=== PATIENT | female | born 1990 | race Caucasian/White ===

== ENCOUNTER 2024-12-28 20:10 | Emergency (ER) | payer SELFPAY ==
[2024-12-28 21:37] LABS: APPEARANCE,URINE SLT CLOUDY; BILIRUBIN,URINE NEGATIVE (NEGATIVE); COLOR,URINE YELLOW; GLUCOSE,URINE NEGATIVE (NEGATIVE); KETONES,URINE NEGATIVE (NEGATIVE); LEUKOCYTE ESTERASE,URINE NEGATIVE (NEGATIVE); NITRITE,URINE POSITIVE (NEGATIVE); OCCULT BLOOD,URINE TRACE-INTACT (NEGATIVE); PROTEIN,URINE NEGATIVE (NEGATIVE); UROBILINOGEN,URINE 0.2 EU/dL (<2.0)
[2024-12-28 21:49] LABS: BACTERIA,URINE 4+ (NEGATIVE); EPITHELIAL CELLS,URINE FEW (NONE-FEW); MUCUS,URINE MODERATE (NONE-MOD); RBC,URINE 0-2 (0-2/HPF)
[2024-12-28] MEDS ORDERED: Sodium Chloride 0.9% 20 ML SDV IV PRN (22:27)
[2024-12-28] MEDS ORDERED: Sodium Chloride 0.9% 2.5 ML Syringe FLUSH PRN (22:27)
[2024-12-28] MEDS ORDERED: Sodium Chloride 0.9% 10 ML Syringe FLUSH PRN (22:27)
[2024-12-28 22:46] LABS: BASOPHILS ABSOLUTE AUTO 0.05 K/uL (0.00-0.20); BASOPHILS PERCENT AUTO 0.5 % (0.0-1.0); EOSINOPHILS ABSOLUTE AUTO 0.13 K/uL (0.00-0.45); EOSINOPHILS PERCENT AUTO 1.2 % (0.0-6.0); HEMATOCRIT 36.3 % (37.0-47.0); HEMOGLOBIN 12.4 g/dL (12.0-16.0); IMMATURE GRAN ABSOLUTE AUTO 0.04 K/uL (0.00-0.05); IMMATURE GRAN PERCENT AUTO 0.4 % (0.0-0.4); LYMPHOCYTES ABSOLUTE AUTO 2.73 K/uL (1.00-4.80); LYMPHOCYTES PERCENT AUTO 24.6 % (24.0-44.0); MEAN CORPUSCULAR HEMOGLOBIN 32.6 pg (28.0-32.0); MEAN CORPUSCULAR HGB CONC 34.2 g/dL (32.0-36.0); MEAN CORPUSCULAR VOLUME 95.5 fL (83.0-99.0); MEAN PLATELET VOLUME 12.2 fL (9.4-12.3); MONOCYTES ABSOLUTE AUTO 1.12 K/uL (0.00-0.80); MONOCYTES PERCENT AUTO 10.1 % (0.0-8.0); NEUTROPHILS ABSOLUTE AUTO 7.03 K/uL (1.80-7.70); NEUTROPHILS PERCENT AUTO 63.2 % (41.0-71.0); PLATELET COUNT,PLT 211 K/uL (150-400)
[2024-12-28] MEDS: cefTRIAXone 2 GM in Sodium Chloride 0.9% 50 ML IV ONE (22:49)
[2024-12-28] MEDS: Sodium Chloride 0.9% 1,000 ML IV ONE (22:49)
[2024-12-28] MEDS: Ondansetron 4 MG/2 ML SDV IVPUSH ONE (22:50)
[2024-12-28] MEDS: Ketorolac 30 MG/ML SDV IVPUSH ONE (22:50)
[2024-12-28] MEDS: Morphine 2 MG/ML SYRINGE IVPUSH ONE ×2 (22:50→23:08)
[2024-12-28] MEDS: Iopamidol 755 MG/ML 500 ML Multipack Bottle IVPUSH ONE (23:00)
[2024-12-28 23:04] LABS: INR 0.96 (0.86-1.11)
[2024-12-28 23:15] LABS: A/G RATIO 1.2 (0.9-1.6); ALBUMIN 3.8 g/dL (3.4-5.0); BILIRUBIN TOTAL 0.3 mg/dL (0.2-1.0); CALCIUM 8.4 mg/dL (8.5-10.1); CARBON DIOXIDE,CO2 23.2 mmol/L (21.0-32.0); CREATININE 0.7 mg/dL (0.6-1.0); EST CRCL DRUG DOSING (CG) 102.86 mL/min
== END 2024-12-29 00:38 | disposition home or self-care (01) ==
LOC: MW.ED 20:10
DX: N12 Tubulo-interstitial nephritis, not specified as acute or chronic (principal); Z90.49 Acquired absence of other specified parts of digestive tract; Z75.8 Other problems related to medical facilities and other health care; Z88.2 Allergy status to sulfonamides; Z88.8 Allergy status to other drugs, medicaments and biological substances
CPT/HCPCS: 36415; 74177; 80053; 81001; 81025; 85025; 85610; 87086; 87088; 87186; 96374; 96375; 99284; J0696; J1885; J2270; J2405; J3490; J7030; Q9967

== ENCOUNTER 2025-08-03 10:08 | Emergency (ER) | payer SELFPAY ==
[2025-08-03 10:30] LABS: APPEARANCE,URINE SLT CLOUDY; GLUCOSE,URINE NEGATIVE (NEGATIVE); OCCULT BLOOD,URINE NEGATIVE (NEGATIVE)
[2025-08-03 10:37] LABS: BASOPHILS ABSOLUTE AUTO 0.05 K/uL (0.00-0.20); BASOPHILS PERCENT AUTO 0.5 % (0.0-1.0); EOSINOPHILS ABSOLUTE AUTO 0.07 K/uL (0.00-0.45); EOSINOPHILS PERCENT AUTO 0.7 % (0.0-6.0); IMMATURE GRAN ABSOLUTE AUTO 0.02 K/uL (0.00-0.05); IMMATURE GRAN PERCENT AUTO 0.2 % (0.0-0.4); LYMPHOCYTES ABSOLUTE AUTO 1.92 K/uL (1.00-4.80); LYMPHOCYTES PERCENT AUTO 19.7 % (24.0-44.0); MEAN PLATELET VOLUME 11.3 fL (9.4-12.3); MONOCYTES ABSOLUTE AUTO 0.92 K/uL (0.00-0.80); MONOCYTES PERCENT AUTO 9.5 % (0.0-8.0); NEUTROPHILS ABSOLUTE AUTO 6.75 K/uL (1.80-7.70); NEUTROPHILS PERCENT AUTO 69.4 % (41.0-71.0); NRBC ABSOLUTE 0.00 K/uL (0.00-0.02); NRBC PERCENT 0.0 /100WBC (0.0-0.2); PLATELET COUNT,PLT 233 K/uL (150-400); RED BLOOD CELL COUNT 3.84 M/uL (4.10-5.30); WHITE BLOOD CELL COUNT,WBC 9.73 K/uL (3.9-11.3)
[2025-08-03 10:37] LABS: EPITHELIAL CELLS,URINE MANY (NONE-FEW)
[2025-08-03 11:21] LABS: A/G RATIO 1.1 (0.9-1.6); ALANINE AMINOTRANSFERASE,ALT 29.0 IU/L (14-63); ASPARTATE AMNIOTRANSFERASE,AST 18.0 IU/L (15-37); BILIRUBIN TOTAL 0.3 mg/dL (0.2-1.0); BLOOD UREA NITROGEN,BUN 16.0 mg/dL (7.0-18.0); CARBON DIOXIDE,CO2 26.7 mmol/L (21.0-32.0); CHLORIDE,CL 106.0 mmol/L (98-107); CREATININE 0.6 mg/dL (0.6-1.0); EST CRCL DRUG DOSING (CG) 114.08 mL/min; GLUCOSE RANDOM 97.0 mg/dL (74-106); POTASSIUM,K 4.4 mmol/L (3.5-5.1); PROTEIN TOTAL,TP 7.1 g/dL (6.4-8.2); SODIUM,NA 142.0 mmol/L (136-145)
[2025-08-03 11:23] LABS: ESTIMATED GFR 121.0 mL/min (>60); HCG QUANTITATIVE 13580.0 mIU/mL
== END 2025-08-03 13:47 | disposition home or self-care (01) ==
LOC: MW.ED 10:08
DX: O23.41 Unspecified infection of urinary tract in pregnancy, first trimester (principal); N39.0 Urinary tract infection, site not specified; Z3A.01 Less than 8 weeks gestation of pregnancy; Z88.2 Allergy status to sulfonamides; Z75.3 Unavailability and inaccessibility of health-care facilities; Z88.8 Allergy status to other drugs, medicaments and biological substances; Z90.49 Acquired absence of other specified parts of digestive tract
CPT/HCPCS: 36415; 76801; 76801-26; 76817; 76817-26; 80053; 81001; 84702; 85025; 86900; 86901; 87086; 99283; 99284

== ENCOUNTER 2025-08-11 14:40 | Emergency (ER) | payer SELFPAY ==
[2025-08-11 15:31] LABS: BASOPHILS ABSOLUTE AUTO 0.05 K/uL (0.00-0.20); BASOPHILS PERCENT AUTO 0.4 % (0.0-1.0); EOSINOPHILS ABSOLUTE AUTO 0.09 K/uL (0.00-0.45); EOSINOPHILS PERCENT AUTO 0.7 % (0.0-6.0); IMMATURE GRAN ABSOLUTE AUTO 0.05 K/uL (0.00-0.05); IMMATURE GRAN PERCENT AUTO 0.4 % (0.0-0.4); LYMPHOCYTES ABSOLUTE AUTO 2.19 K/uL (1.00-4.80); LYMPHOCYTES PERCENT AUTO 17.0 % (24.0-44.0); MEAN PLATELET VOLUME 11.6 fL (9.4-12.3); MONOCYTES ABSOLUTE AUTO 0.98 K/uL (0.00-0.80); MONOCYTES PERCENT AUTO 7.6 % (0.0-8.0); NEUTROPHILS ABSOLUTE AUTO 9.49 K/uL (1.80-7.70); NEUTROPHILS PERCENT AUTO 73.9 % (41.0-71.0); NRBC ABSOLUTE 0.00 K/uL (0.00-0.02); NRBC PERCENT 0.0 /100WBC (0.0-0.2); PLATELET COUNT,PLT 221 K/uL (150-400); RED BLOOD CELL COUNT 3.69 M/uL (4.10-5.30); WHITE BLOOD CELL COUNT,WBC 12.85 K/uL (3.9-11.3)
[2025-08-11 15:44] LABS: INR 0.94 (0.86-1.11); PTT,PARTIAL THROMBOPLSTIN TIME 24.0 SEC (23.9-30.7)
[2025-08-11 16:21] LABS: A/G RATIO 1.0 (0.9-1.6); ALANINE AMINOTRANSFERASE,ALT 23.0 IU/L (14-63); ASPARTATE AMNIOTRANSFERASE,AST 16.0 IU/L (15-37); BILIRUBIN TOTAL 0.1 mg/dL (0.2-1.0); BLOOD UREA NITROGEN,BUN 17.0 mg/dL (7.0-18.0); CARBON DIOXIDE,CO2 22.9 mmol/L (21.0-32.0); CHLORIDE,CL 105.0 mmol/L (98-107); CREATININE 0.5 mg/dL (0.6-1.0); EST CRCL DRUG DOSING (CG) 136.9 mL/min; GLUCOSE RANDOM 112.0 mg/dL (74-106); POTASSIUM,K 4.0 mmol/L (3.5-5.1); PROTEIN TOTAL,TP 6.6 g/dL (6.4-8.2); SODIUM,NA 140.0 mmol/L (136-145)
[2025-08-11 16:25] LABS: ESTIMATED GFR 126.0 mL/min (>60); HCG QUANTITATIVE 68672.0 mIU/mL
== END 2025-08-11 18:54 | disposition home or self-care (01) ==
LOC: MW.ED 14:40
DX: O20.0 Threatened abortion (principal); Z75.3 Unavailability and inaccessibility of health-care facilities; Z88.2 Allergy status to sulfonamides; Z88.8 Allergy status to other drugs, medicaments and biological substances; Z79.899 Other long term (current) drug therapy; Z3A.01 Less than 8 weeks gestation of pregnancy
CPT/HCPCS: 36415; 76817; 80053; 84702; 85025; 85610; 85730; 86900; 86901; 96360; 99284; J7030; 99283